=== PATIENT | female | born 1985 | race Two or more races ===

== ENCOUNTER 2019-12-20 16:41 | Emergency (ER) | payer MEDICAID ==
[~2019-12-20] VITALS: Ht 162.6 cm; Wt 86.2 kg
--- NOTE | 2019-12-20 18:32 | NUR ---
ED Nurse Note: pt voiding urine sample and amb steady gait to radiology
--- NOTE | 2019-12-20 18:58 | NUR ---
ED Nurse Note: pt eval by trevor atwood
--- NOTE | 2019-12-20 19:08 | Emergency Room Report ---
History of Present Illness General Chief Complaint: Pain Source: Patient Present Illness HPI 34 YO female presents to the ED c/o 07/27 in severity right hip pain. Denies trauma or fall. Denies bruises, erythema, warmth, fevers or chills. Pain upon hip flexion and walking. Denies significant pmhx. Patient reports that she feels as though the pain is located inside of the hip joint itself. 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 She denies calf pain or tenderness. She denies swelling of the lower extremity distal to her pain. She denies skin color changes. She denies clicking or popping of the joint. She denies history of neoplastic disease or history of hernias. She denies abdominal pain or tenderness. She denies dysuria, hematuria, urinary frequency or urgency. She denies suspicion of . She reports that she has not tried any eels-sfr-keyvsyr oral medications in an attempt to relieve her symptoms. She reports that she occasionally smokes marijuana with no relief. Allergies: Coded Allergies: No Known Allergies (Unverified , 12/20/19) Patient History Past Medical History: see triage record Past Surgical History: none Pertinent Family History: none Last Menstrual Period: 12/16/2019 Now: No Reviewed Nursing Documentation: PMH: Agreed; PSxH: Agreed Nursing Documentation-PMH Past Medical History: No Stated History Review of Systems All Other Systems: negative except mentioned in HPI Physical Exam Vital Signs Date Time Temp Pulse Resp B/P (MAP) Pulse Ox O2 Delivery O2 Flow Rate FiO2 12/20/19 17:13 98.4 82 16 117/71 (86) 20 Room Air Sp02 EP Interpretation: reviewed, normal General Appearance: no apparent distress, alert, GCS 15, non-toxic Head: normocephalic, atraumatic Eyes: bilateral eye normal inspection, bilateral eye PERRL ENT: hearing grossly normal, normal voice Neck: full range of motion Respiratory: lungs clear, normal breath sounds, speaking full sentences Cardiovascular #1: regular rate, rhythm, no edema, normal capillary refill Cardiovascular #2: 2+ dorsalis pedis (R) - post. tibial Gastrointestinal: non tender, soft, non-distended, no guarding, no hernia Genitourinary: normal inspection, no CVA tenderness Musculoskeletal: back normal, normal range of motion, gait/station normal, tender - TTP to the inguinal ligament of the right leg. some lateral right hip TTP, FROM with some pain. NO erythema, clicking, obvious deformity or bruising. Ambulatory with a compensated gait favoring the right side. Neurologic: alert, motor strength/tone normal, oriented x3, sensory intact, responsive, speech normal, grossly normal, other - normal compensatory gait favoring the right side. NO neurological deficits. Psychiatric: judgement/insight normal Skin: no rash, normal color Lymphatic: no adenopathy Medical Decision Making PA Attestation Dr. Messina Is my supervising Physician whom patient management has been discussed with. Diagnostic Impression: Primary Impression: Pain, joint, hip, right ER Course 34 YO female presents to the ED c/o 07/27 in severity right hip pain. Denies trauma or fall. Denies bruises, erythema, warmth, fevers or chills. Pain upon hip flexion and walking. Denies significant pmhx. Patient reports that she feels as though the pain is located inside of the hip joint itself. 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 She denies calf pain or tenderness. She denies swelling of the lower extremity distal to her pain. She denies skin color changes. She denies clicking or popping of the joint. She denies history of neoplastic disease or history of hernias. She denies abdominal pain or tenderness. She denies dysuria, hematuria, urinary frequency or urgency. She denies suspicion of . She reports that she has not tried any sbjx-gbk-rilsljt oral medications in an attempt to relieve her symptoms. She reports that she occasionally smokes marijuana with no relief. Ddx considered but are not limited to Fracture, dislocation, contusion, Sprain/ Strain/Spasm, Hernia, Tendonitis, Epidural abscess, Neoplastic mets,auto- immune disorder, Pseudo gout, arthritis, hernia, Ovarian cyst, Ectopic , ovarian torsion, Avascular necrosis just to name a few. Vital signs: are WNL, pt. is afebrile H&PE are most consistent with musculoskeletal injury will perform imaging to r/ o fractures/dislocations. No evidence to suggest infection. No abdominal symptoms or abdominal tenderness. No obvious deformities or leg length discrepancy. Patient is ambulatory with a compensated gait favoring the right leg. ORDERS: -Urine Hcg: Negative - X-ray Right hip and PA View ( 3 views total) - negative for fx, Dislocation , or significant soft tissue injury, per preliminary read in ED, and signed by LUIS CARLOS Calix, my supervising physician has reviewed, and agrees with my interpretation. ED INTERVENTIONS: - Toradol IM -I do not identify an emergent condition at this time. With current presentation , pt. is stable for close outpatient follow up and conservative treatment. D/ w pt. to return promptly to ED with worsening or new symptoms.- Pt. verbalizes' understanding and agreement with proposed treatment plan. DISCHARGE: At this time pt. is stable for d/c to home. Will provide printed patient care instructions, and any necessary prescriptions. Care plan and follow up instructions have been discussed with the patient prior to discharge. Labs Test 12/20/19 18:39 Urine HCG, Qualitative Negative (NEGATIVE) Other X-Ray Diagnostic Results Other X-Ray Diagnostic Results : X-Ray ordered: Right HIp + PA # of Views/Limited Vs Complete: 3 View Indication: Pain EP Interpretation: Yes PA Xray: Interpretation reviewed, and agrees with findings. Interpretation: no dislocation, no soft tissue swelling, no fractures Impression: No acute disease Electronically Signed by: Halle Calix PA-C Last Vital Signs Date Time Temp Pulse Resp B/P (MAP) Pulse Ox O2 Delivery O2 Flow Rate FiO2 12/20/19 17:13 98.4 82 16 117/71 (86) 20 Room Air Disposition: HOME, SELF-CARE Condition: Stable Scripts Diclofenac Sodium (VOLTAREN) 100 Gm Gel..gram. 1 APPLIC TP Q6HR, #100 GM Prov: Halle Calix 12/20/19 Ibuprofen* (MOTRIN*) 600 Mg Tablet 600 MG ORAL THREE TIMES A DAY, #30 TAB 0 Refills Prov: Halle Calix 12/20/19 Patient Instructions: Hip Pain Additional Instructions: Take medications as directed. Follow up with an [facility] SUPERVISOR in 3-5 days, even if your symptoms have resolved. If symptoms persist MRI may be required at the discretion of your PCP or Ortho Specialist. --Please review list of primary care clinics, if you do not already have a primary care provider who can give you an Orthopedic Referral. Return sooner to ED if new symptoms occur, or current symptoms become worse. - Please note that this Emergency Department Report was dictated using [employer] manager technology software, occasionally this can lead to erroneous entry secondary to interpretation by the dictation equipment. Halle Calix Dec 20, 2019 19:08
[2019-12-20] MEDS ORDERED: IBUPROFEN600 MG ORAL (19:11)
[2019-12-20] MEDS ORDERED: VOLTAREN100 G1 TP (19:11)
--- NOTE | 2019-12-20 19:30 | NUR ---
ED Nurse Note: Recieved report from am nurse to resume care, pt in bed aake and alert and oriented x 4, pt waiting for results and disposition from er, pt reports pain and MD aware, will resume care as ordered and clsoely monitor.
[2019-12-20] MEDS ORDERED: Tylenol #3 tab (300mg/30mg) ORAL ONE (19:45)
[2019-12-20] MEDS ORDERED: Ketorolac 30mg Inj IM ONE (19:45)
[2019-12-20 20:00] VITALS: BP 122/77
[2019-12-20 20:10] VITALS: BP 117/71
--- NOTE | 2019-12-20 20:10 | NUR ---
ER DISCHARGE NOTE: Patient is cleared to be discharged per ERMD, pt is aox4, on room air, with stable vital signs. pt was given dc and prescription instructions, pt was able to verbalize understanding, pt id band removed without complications. pt is able to ambulate with steady gait. pt took all belongings.
--- NOTE | 2019-12-21 11:28 | Diagnostic Imaging Report ---
Indications: Right hip pain Findings: Two views of the right hip were obtained. No acute fracture is demonstrated. Alignment of the hip is within normal limits. Soft tissues are unremarkable. Impression: Negative for acute injury.
== END 2019-12-20 20:10 | disposition home or self-care (01) ==
LOC: EMR 17:50
DX: M25.551 Pain in right hip (principal)
CPT/HCPCS: 73501; 81025; 96372; J1885; Z7502; 99283